=== PATIENT | male | born 1985 | race American Indian/Alaskan Native ===

== ENCOUNTER 2018-03-17 12:25 | Day surgery (SDC) | payer OTHER ==
[~2018-03-17] VITALS: Ht 190.5 cm; Wt 129.3 kg
[~2018-03-17 12:25] MED LIST: LEVOTHYROXINE50 MCG PO
--- NOTE | 2018-03-17 14:03 | NUR ---
03/17/18 1403 Mery Arriaza 1357 PT ARRIVED TO PACU ON 3L VIA MASK, PT DROWSY. PT DENIES PAIN AND NAUSEA. PT ENCOURAGED TO PASS GAS/AIR. 1400 O2 REMOVED, O2 SAT 98%, RESP EVEN AND UNLABROED. GAURDS AT BEDSIDE. 1403 PT ALSEEP. SOME SNORING NOTED.
--- NOTE | 2018-03-18 08:42 | OR ---
[facility] [address], [place] [address] Signed DATE OF OPERATION: 03/17/2018 SURGEON: Willy Strange MD PREOPERATIVE DIAGNOSES: 1. Epigastric pain and dark blood per rectum. 2. Episodic rectal bleeding including bright rectal blood. POSTOPERATIVE DIAGNOSES: 1. Distal esophagitis with hiatal hernia. 2. Hyperplastic polyp of the left colon. 3. Internal hemorrhoids (probable source of rectal bleeding). PROCEDURES: 1. Esophagogastroduodenoscopy with biopsy. 2. Total colonoscopy to cecum with cold morcellation polypectomy of hyperplastic polyp and biopsies of rectum and cecum. ANESTHESIA: Intravenous sedation, fentanyl 150 mcg, and Versed 11 mg. INDICATION: This large 32-year-old man is a prisoner at [facility] and a patient of ROSA Gomez. He has had complaints of epigastric pain as well as some diarrhea and also some dark stool. Additionally, he has had episodes of rectal bleeding. He is admitted to undergo upper endoscopy and colonoscopy. He understands the risks of bleeding, infection, perforation. FINDINGS: Upper endoscopy demonstrated distal esophagitis without Woods epithelium and a poor flap valve consistent with hiatal hernia. Stomach and duodenum were otherwise normal. CLOtest was negative. On colonoscopy, the prep was good. There were internal hemorrhoidal changes. No sign of diverticuli or polyps other than a hyperplastic polyp of the left colon. Intubation of the ileum was not forthcoming though attempts were made to do so. There was no sign of inflammatory bowel disease. DESCRIPTION OF PROCEDURE: The patient was brought to the endoscopy suite, given topical Hurricaine spray Electronically Signed By: WILLY STRANGE MD 03/18/18 0842 PATIENT NAME: RIDDHI SPARKS OPERATIVE REPORT DATE OF : 85 REPORT #: [id number] PHYSICIAN: WILLY STRANGE MD PCP: BLANK SMALLS REPORT IS CONFIDENTIAL AND NOT TO BE RELEASED WITHOUT AUTHORIZATION [facility] [address], [place] [address] Signed hypopharyngeal anesthesia and placed in lateral decubitus position. He was given intravenous sedation to the point of slurred speech and nystagmus with full cardiopulmonary monitoring. He was in left side down position. A bite block was placed. An Olympus video upper endoscope was passed in the hypopharynx, had a rather large vallecula, but the scope was easily passed in the esophagus without problem. Throughout the esophagus, there was no sign of abnormality until the distal portion where there was inflammatory change. No strict ulceration. No stricture. No Woods's epithelium. Scope was advanced to the stomach which was insufflated with air. Excess gastric juices were suctioned free. Rugal folds appeared normal as did antral motility. Pylorus was normal. Scope was passed through into the duodenum which appeared normal. Biopsies were taken to assess for celiac disease. The scope was withdrawn. Biopsies taken of the antrum for both ROBERTO and pathologic testing. Retroflexed view was undertaken showing effaced and poor flap valve. Withdrawal of the scope in the J position allowed easy visualization of the esophagus. All of this consistent with poor flap valve. Scope was straightened, withdrawn to the distal esophagus where clear evidence of esophagitis was noted, but no sign of stricture or neoplasm. There was no Woods's epithelium, biopsies were obtained. The scope was withdrawn and ultimately removed. Proximal esophagus and mid esophagus were normal. Additional sedation was given. Table was rotated and digital rectal examination performed showing no sign of external hemorrhoidal disease. Olympus video colonoscope was passed in the rectum and manipulated throughout the colon ultimately passed beyond the transverse and right colon without problem. The cecum was visualized as was the ileocecal valve, but various manipulations to attain intubation of the ileum were quite impossible unfortunately. Abdominal wall stabilization so forth were attempted, but to no avail. Biopsies were ultimately taken of the cecum itself, though it did appear normal. The scope was withdrawn from that point. There were no abnormalities noted until the proximal descending colon where small hyperplastic polyp was noted. This was photographed and excised with cold morcellation technique. Further withdrawal of scope showed no sign of abnormality until retroflexed view of the rectum demonstrated at least one nonbleeding thrombosed hemorrhoid. Scope was straightened and withdrawn. Biopsies taken of the rectum to rule out occult colitis. Additionally, a biopsy had been taken of the cecum for that purpose. Scope was then removed. The patient was taken to recovery room in good condition. CONCLUDING DIAGNOSES: 1. Rectal bleeding probably related to internal hemorrhoids. 2. Epigastric pain likely related to reflux esophagitis. PLAN: We will recommend Prilosec 20 mg p.o. daily. Additionally, Citrucel 1 tablespoon or packet daily. If he has ongoing rectal bleeding, consideration will be made for Electronically Signed By: WILLY STRANGE MD 03/18/18 0842 PATIENT NAME: RIDDHI SPARKS OPERATIVE REPORT DATE OF : 85 REPORT #: [id number] PHYSICIAN: WILLY STRANGE MD PCP: BLANK SMALLS REPORT IS CONFIDENTIAL AND NOT TO BE RELEASED WITHOUT AUTHORIZATION [address] [address] Signed hemorrhoidal banding in the office setting. I will follow up with him in the [facility] in 4 weeks or more. MD MARKELL García/ANGELAL /[id number] cc: ROSA Rodrigues Copies: BLANK SMALLS ~ Electronically Signed By: WILLY STRANGE MD 03/18/18 0842 PATIENT NAME: RIDDHI SPARKS ODESSA OPERATIVE REPORT DATE OF : 85 REPORT #: [id number] PHYSICIAN: WILLY STRANGE MD PCP: BLANK SMALLS REPORT IS CONFIDENTIAL AND NOT TO BE RELEASED WITHOUT AUTHORIZATION
== END 2018-03-17 14:37 | disposition home or self-care (01) ==
LOC: DS 12:25 → OPS 12:25 → DS 13:00 → OPS 14:37
PROVIDERS: Surgery
PROC: 0DB38ZX Excision of Lower Esophagus, Via Natural or Artificial Opening Endoscopic, Diagnostic (ICD-10-PCS; 2018-03-17)
PROC: 0DBH8ZZ Excision of Cecum, Via Natural or Artificial Opening Endoscopic (ICD-10-PCS; 2018-03-17)
PROC: 0DBP8ZX Excision of Rectum, Via Natural or Artificial Opening Endoscopic, Diagnostic (ICD-10-PCS; 2018-03-17)
PROC: 0DBG8ZX Excision of Left Large Intestine, Via Natural or Artificial Opening Endoscopic, Diagnostic (ICD-10-PCS; 2018-03-17)
PROC: 0DB98ZX Excision of Duodenum, Via Natural or Artificial Opening Endoscopic, Diagnostic (ICD-10-PCS; principal; 2018-03-17 13:00)
PROC: 0DB78ZX Excision of Stomach, Pylorus, Via Natural or Artificial Opening Endoscopic, Diagnostic (ICD-10-PCS; 2018-03-17 13:00)
DX: K63.5 Polyp of colon (principal); K64.8 Other hemorrhoids; K29.80 Duodenitis without bleeding; K20.9 Esophagitis, unspecified; K44.9 Diaphragmatic hernia without obstruction or gangrene; K31.9 Disease of stomach and duodenum, unspecified; E03.9 Hypothyroidism, unspecified
CPT/HCPCS: 99153; G0500; J2250; J3010; J7120